=== PATIENT | male | born 1940 | race Hispanic/Latino ===

== ENCOUNTER → 2025-02-01 | Outpatient (CLI) | payer OTHER ==
--- NOTE | 2025-02-02 16:01 | HMCSR ---
APPROVED REPORT Indications SOB Duplex Results A/PTransverseLongitudinalVelocityWaveform Proximal Aorta 2.23cm2.75cm2.30cm56.90 cm/sec Mid Aorta 2.36cm2.27cm2.40cm60.00 cm/sec Distal Aorta 2.23cm2.17cm2.27cm48.50 cm/sec Rt. Common Iliac Artery1.47cm1.47cm1.21cm59.20 cm/sec Lt. Common Iliac Artery 1.33cm1.60cm1.44cm72.30 cm/sec Techologist Impression The abdominal aorta and the proximal portion of the right and left common iliac arteries were examine d utilizing duplex ultrasonography. The abdominal aorta and the right and left common iliac arteries are patent and normal in size withou t evidence of aneurysm; however, there is evidence of mild atherosclerotic disease. Conclusion No evidence of abdominal aortic aneurysm No adjuvant of iliac artery atherosclerosis of hemodynamic significance Conclusion No evidence of abdominal aortic aneurysm No adjuvant of iliac artery atherosclerosis of hemodynamic significance
--- NOTE | 2025-02-02 16:02 | HMCSR ---
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 (R) 70.6cm/sec, Biphasic, Prof Fem Art. (L) 52.2cm/sec, Biphasic, Fem Art Prox. (R) 116.9cm/sec, Triphasic, Fem Art Prox. (L) 116.9cm/sec, Triphasic, Fem Art Mid. (R) 91.5cm/sec, Triphasic, Fem Art Mid. (L) 89.7cm/sec, Triphasic, Fem Art Dist (R) 76.3cm/sec, Triphasic, Fem Art Dist. (L) 79.1cm/sec, Triphasic, Pop Art(AK) (R) 75.4cm/sec, Triphasic, Pop Art (AK) (L) 86.5cm/sec, Triphasic, Pop Art (Fossa)(R) 79.9cm/sec, Triphasic, Pop Art (Fossa) (L) 65.6cm/sec, Triphasic, Pop Art(BK) (R) 88.9cm/sec, Triphasic, Pop Art (BK) (L) 82.4cm/sec, Triphasic, WEB EDITOR Dist. (R) 72.6cm/sec, Triphasic, WEB EDITOR Dist. (L) 62.8cm/sec, Triphasic, Per Art Dist. (R) 58.7cm/sec, Biphasic, Per Art Dist. (L) 43.7cm/sec, Triphasic, EVELYN Dist. (R) 72.6cm/sec, Biphasic, EVELYN Dist. (L) 97.2cm/sec, Triphasic, Technologist Impression No evidence of significant arterial insufficiency of bilateral lower extremities. Multiphasic waveforms seen in the bilateral lower extremities. Conclusion No evidence of significant arterial insufficiency of bilateral lower extremities. Conclusion No evidence of significant arterial insufficiency of bilateral lower extremities.
--- NOTE | 2025-02-02 16:02 | HMCSR ---
APPROVED REPORT Bilateral Lower Extremity Venous Study for DVT., Venous Competence. Indications i87.1, i87.2, SOB Vein Imaging CFV (R): Normal flow, augmentation and compression. No evidence of DVT. 11.4mm 1283ms of DVR. SFJ (R): Normal flow, augmentation and compression. No evidence of DVT. FEM (R): Normal flow, augmentation and compression. No evidence of DVT. POP (R): Normal flow, augmentation and compression. No evidence of DVT. DFV (R): Normal flow, augmentation and compression. No evidence of DVT. PTV (R): Normal flow, augmentation and compression. No evidence of DVT. Peroneals (R): Normal flow, augmentation and compression. No evidence of DVT. CFV (L): Normal flow, augmentation and compression. No evidence of DVT. 11.1mm 1144ms of DVR. SFJ (L): Normal flow, augmentation and compression. No evidence of DVT. FEM (L): Normal flow, augmentation and compression. No evidence of DVT. POP (L): Normal flow, augmentation and compression. No evidence of DVT. DFV (L): Normal flow, augmentation and compression. No evidence of DVT. PTV (L): Normal flow, augmentation and compression. No evidence of DVT. Peroneals (L): Normal flow, augmentation and compression. No evidence of DVT. Technologist Impression Deep veins of bilateral lower extremities appear patent and compressible without thrombus. Significant deep vein reflux seen. Superficial venous insufficiency seen in the RGSV & LGSV. RGSV Junction 3.3mm 1183ms thigh 1.5mm 0.0ms (small size) knee 1.2mm 0.0ms (small size) calf 1.5mm 0.0ms (small size) RSSV prox 1.1mm 0.0ms mid 1.4mm 0.0ms LGSV Junction 5.7mm 961ms thigh 2.1mm 206ms knee 1.7mm 0.0ms (small size) calf 1.9mm 0.0ms (small size) LSSV prox 2.8mm 0.0ms mid 2.4mm 0.0ms Conclusion Significant deep vein reflux seen. Superficial venous insufficiency seen in the RGSV & LGSV. No DVT Conclusion Significant deep vein reflux seen. Superficial venous insufficiency seen in the RGSV & LGSV. No DVT
== END | disposition home or self-care (01) ==
LOC: SHCH 07:50
PROVIDERS: ATTEND Internal Medicine Cardiovascular Disease
DX: I08.0 Rheumatic disorders of both mitral and aortic valves (principal); I87.2 Venous insufficiency (chronic) (peripheral); I70.203 Unspecified atherosclerosis of native arteries of extremities, bilateral legs; I87.1 Compression of vein; R07.9 Chest pain, unspecified; R06.02 Shortness of breath
CPT/HCPCS: 93306; 93925; 93970; 93978